=== PATIENT | female | born 1950 | race Asian ===

== ENCOUNTER 2019-09-29 20:06 | Emergency (ER) | payer MEDICARE, OTHER ==
[~2019-09-29] VITALS: Ht 162.6 cm; Wt 94.0 kg
[2019-09-29] MEDS ORDERED: INSLAN SQ (20:16)
[2019-09-29] MEDS ORDERED: DULA0.75 SQ (20:16)
[2019-09-29] MEDS ORDERED: KETOROLAC TROMETHAMINE 60 MG/2 ML VIAL IM ONE (21:15)
[2019-09-29] MEDS ORDERED: [UNRECOGNIZED DRUG - OTHER] PO (22:12)
[2019-09-29 23:40] VITALS: BP 141/79
== END 2019-09-30 00:05 | disposition home or self-care (01) ==
LOC: EMS 20:06
DX: S86.811A Strain of other muscle(s) and tendon(s) at lower leg level, right leg, initial encounter (principal); S86.812A Strain of other muscle(s) and tendon(s) at lower leg level, left leg, initial encounter; M25.571 Pain in right ankle and joints of right foot; M25.572 Pain in left ankle and joints of left foot; E11.9 Type 2 diabetes mellitus without complications; Z88.5 Allergy status to narcotic agent; Z88.6 Allergy status to analgesic agent; Z88.8 Allergy status to other drugs, medicaments and biological substances; Z79.4 Long term (current) use of insulin; Z79.899 Other long term (current) drug therapy; X50.1XXA Overexertion from prolonged static or awkward postures, initial encounter; Y93.89 Activity, other specified; Y92.89 Other specified places as the place of occurrence of the external cause; Y99.8 Other external cause status
CPT/HCPCS: 73562 ×2; 73610 ×2; 82962; 96372; 99284; J1885